=== PATIENT | female | born 1990 | race Caucasian/White ===

== ENCOUNTER 2020-02-05 06:10 | Inpatient (IN) | payer OTHER ==
[2020-02-05] MEDS ORDERED: OXYTOCIN 10 UNIT/ML 1 ML VIAL IM PRN (06:24)
[2020-02-05] MEDS ORDERED: METHYLERGONOVINE 0.2 MG/ML 1 ML AMP IM PRN (06:24)
[2020-02-05] MEDS ORDERED: LIDOCAINE 0.5% (PF) 5 MG/ML (50 ML SDV) SQ PRN (06:24)
[2020-02-05] MEDS ORDERED: TERBUTALINE 1 MG/ML VIAL SQ PRN (06:24)
[2020-02-05] MEDS ORDERED: CARBOPROST TROMETHAMINE 250 MCG/ML 1 ML AMP IM PRN (06:24)
[2020-02-05] MEDS: LACTATED RINGERS 1,000 ML IV SCH (06:35)
[2020-02-05 06:36] LABS: Basophils # (A) 0.1 k/uL (0-0.2); Basophils % (A) 0 %; Eosinophils # (A) 0.1 k/uL (0-0.7); Eosinophils % (A) 1 %; HCT 38.2 % (34.0-46.0); HGB 12.4 gm/dL (11.4-16.0); Lymphocytes % (A) 21 %; MCH 27.8 pg (25.0-35.0); MCHC 32.4 g/dL (31.0-37.0); MCV 86.1 fL (80.0-100.0); Mean Platelet Volume 8.6; Monocytes # (A) 0.5 k/uL (0-1.0); Monocytes % (A) 3 %; Neutrophils # (A) 10.4 k/uL (1.3-7.7); Neutrophils % (A) 73 %; Platelet Count 273 k/uL (150-450); RBC 4.44 m/uL (3.80-5.40); RDW 13.9 % (11.5-15.5); WBC 14.3 k/uL (3.8-10.6)
[2020-02-05] MEDS: OXYTOCIN 30 UNITS/500 ML NS 30 UNIT in SALINE 1 500ML.BAG IV SCH (06:39)
[2020-02-05] MEDS: CLINDAMYCIN 900 MG in DEXTROSE 5% IN WATER 50 ML IVPB SCH ×2 (06:44)
--- NOTE | 2020-02-05 08:33 | P.HPOB ---
History of Present Illness H&P Date: 02/05/20 Chief Complaint: IUP at 39 0/sevenths weeks This is a 30-year-old 1 para 0 at 39-0/7 weeks with an estimated due date of 02/11. Patient presents to labor and delivery for induction of labor. Patient does note contractions that began around 4 AM this morning regular nature and getting stronger. Patient denied loss of fluid or vaginal bleeding. Patient notes good movement this morning. Patient has been receiving routine care with myself which has been essentially uncomplicated with the exception of a marginal cord insertion that was noted on ultrasound at 20 weeks. On bloodwork patient is blood type of O+, rubella status immune, hepatitis B surface antigen negative, HIV negative, group beta strep status is positive. Review of Systems Constitutional: Denies chills, Denies fatigue, Denies fever Ears, nose, mouth and throat: Denies headache Cardiovascular: Reports leg edema Respiratory: Denies dyspnea Gastrointestinal: Denies constipation, Denies diarrhea, Denies nausea, Denies vomiting Genitourinary: Reports Past Medical History Past Medical History: No Reported History History of Any Multi-Drug Resistant Organisms: None Reported Past Surgical History: Orthopedic Surgery Additional Past Surgical History / Comment(s): several eye surgeries Past Anesthesia/Blood Transfusion Reactions: No Reported Reaction Past Psychological History: No Psychological Hx Reported Smoking Status: Never smoker Past Alcohol Use History: None Reported Past Drug Use History: None Reported - Past Family History Father Family Medical History: Hypertension Medications and Allergies Home Medications Medication Instructions Recorded Confirmed Type No Known Home Medications 02/05/20 02/05/20 History Allergies Allergy/AdvReac Type Severity Reaction Status Date / Time Penicillins Allergy Anaphylaxis Verified 02/05/20 06:14 Exam Osteopathic Statement: *. No significant issues noted on an osteopathic structural exam other than those noted in the History and Physical/Consult. 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 Breathing is noted to be nonlabored, heart has a regular rate and rhythm, abdome n is gravid and appropriate for gestational age, heart tones returned be category 1 and she is kaylen every 3 minutes. On cervical exam she is noted to be 6/90/-1 station amniotomy is performed and clear fluid was obtained. Results Result Diagrams: 02/05/20 06:22 Abnormal Lab Results - Last 24 Hours (Table) 02/05/20 Range/Units 06:22 WBC 14.3 H (3.8-10.6) k/uL Neutrophils # 10.4 H (1.3-7.7) k/uL Assessment and Plan (1) Term Current Visit: Yes Status: Acute Code(s): Z34.90 - ENCNTR FOR SUPRVSN OF NORMAL , UNSP, UNSP TRIMESTER SNOMED Code(s): 88145910 (2) Active labor Current Visit: Yes Status: Acute Code(s): LJZ7613 - SNOMED Code(s): 426152152 (3) Positive GBS test Current Visit: Yes Status: Acute Code(s): B95.1 - STREPTOCOCCUS, GROUP B, [facility]ING [facility] Code(s): 571400453 Plan: This 30-year-old 1 para 0 at 39 0/7 weeks is admitted to labor and delivery for active labor. Patient is offered analgesic options including epid ural and Stadol she will consider both. Anticipate spontaneous vaginal delivery later this morning.
[2020-02-05] MEDS ORDERED: ROPIVACAINE 5MG/ML 20ML VIAL ONE (08:39)
[2020-02-05] MEDS ORDERED: SODIUM CHLORIDE 0.9% 100 ML BAG ONE (08:39)
[2020-02-05] MEDS ORDERED: fentaNYL (PF) 50 MCG/ML 5 ML AMP ONE (08:39)
[2020-02-05] MEDS ORDERED: ROPIVACAINE 100 MG, fentaNYL (PF) 200 MCG in SODIUM CHLORIDE 0.9% 76 ML EPIDURAL ONE (09:08)
[2020-02-05] MEDS ORDERED: IBUPROFEN 600 MG TAB PO PRN (11:25)
[2020-02-05] MEDS ORDERED: SIMETHICONE 80 MG CHEWABLE PO PRN (11:25)
[2020-02-05] MEDS ORDERED: LANOLIN CREAM 5 GM TUBE TOPICAL PRN (11:25)
[2020-02-05] MEDS ORDERED: diphenhydrAMINE 50 MG CAP PO PRN (11:25)
[2020-02-05] MEDS ORDERED: HYDROCORTISONE 2.5% RECTAL CREAM 30 GM TUBE RECTAL PRN (11:25)
[2020-02-05] MEDS ORDERED: HYDROcodone/APAP 5-325MG 1 EACH TAB PO PRN (11:25)
[2020-02-05] MEDS ORDERED: BENZOCAINE/MENTHOL SPRAY 1 GM/SPRAY AEROSOL TOPICAL PRN (11:25)
[2020-02-05] MEDS ORDERED: ZOLPIDEM 5 MG TAB PO PRN (11:25)
[2020-02-05] MEDS ORDERED: ACETAMINOPHEN TAB 325 MG TAB PO PRN (11:25)
[2020-02-05] MEDS ORDERED: diphenhydrAMINE 25 MG CAP PO PRN (11:25)
[2020-02-05] MEDS ORDERED: diphenhydrAMINE 50 MG/ML 1 ML VIAL IVP PRN ×2 (11:25)
--- NOTE | 2020-02-05 11:29 | P.PROBDLV ---
Vaginal Delivery Note - . Vaginal Delivery Note: This is a 30-year-old 1 para 0 at 39-0/7 weeks that presented for regular painful contractions. Patient was initially scheduled for induction of labor today. Patient was noted to be 6 cm on admission. Amniotomy was performed and clear fluid was obtained upon admission. Patient quickly became uncomfortable after amniotomy and epidural was requested. Epidural was placed without difficulty by the anesthesia department. Patient progressed through labor eventually becoming complete and began pushing. Patient went on to have a normal spontaneous vaginal delivery of a viable male infant at 1058, weight of 5 lbs. 15 oz. with Apgars of 8 and 9 at one and 5 minutes respectively. After a two-minute delayed the umbilical cord was doubly clamped and cut and the was handed off to awaiting RN. Meconium-stained fluid were noted after the delivery of the infant. The placenta was then delivered spontaneously intact with a three-vessel cord being noted marginal umbilical cord insertion was noted. On inspection the patient's vaginal vault a second-degree midline laceration was noted this was repaired in the usual fashion with 3-0 Rapide. A left labial laceration was noted to be bleeding therefore this was closed in a running fashion with 4-0 c hromic. The uterus is noted to be firm and below the umbilicus at this time. Patient and tolerated delivery well All counts are correct 2.
[2020-02-05] MEDS ORDERED: OXYTOCIN 20 UNITS/1000 ML NS 1,000 ML IV SCH (11:30)
--- NOTE | 2020-02-06 09:12 | P.DS ---
Providers Date of admission: 02/05/20 06:10 Expected date of discharge: 02/06/20 Attending physician: Vivi Reese Primary care physician: Stated None - Discharge Diagnosis(es) (1) Term Current Visit: Yes Status: Acute (2) Active labor Current Visit: Yes Status: Acute (3) Positive GBS test Current Visit: Yes Status: Acute (4) Status post vaginal delivery Current Visit: Yes Status: Acute (5) Obstetric vaginal laceration with second degree perineal laceration Current Visit: Yes Status: Acute Hospital Course: This is a pleasant 30-year-old 1 now para 1 that presented to labor and delivery at 39-0/7 weeks for induction of labor. Patient had been receiving routine care with myself with the only complication of a marginal cord insertion noted at her anatomy ultrasound. Patient did note contractions to begin early that morning becoming regular and painful. Patient was noted to be 6 cm on admission. Patient underwent amniotomy and clear fluid was obtained. Patient requested epidural which was placed with the anesthesia department. Patient progressed to complete began pushing and had a normal spontaneous vaginal delivery of a viable male infant at 1058, weight of 5 lbs. 15 oz. and Apgars of 8 and 9 at one and 5 minutes respectively. Patient's course has been uneventful. On this day #1 she is a billing and voiding without difficulty she is tolerating a regular diet without nausea or vomiting. She states her pain is well-controlled. She is breast-feeding without difficulty. She would like discharge home at 24 hours if infant is discharged as well. Patient Condition at Discharge: Good Plan - Discharge Summary New Discharge Prescriptions: No Action No Known Home Medications Discharge Medication List No Known Home Medications 02/05/20 [History] Follow up Appointment(s)/Referral(s): Vivi Reese DO [Doctor of Osteopathic Medicine] - 1 Week Patient Instructions/Handouts: Vaginal Delivery (GEN), Vaginal Delivery (DC) Discharge Disposition: HOME SELF-CARE
[2020-02-06 10:35] LABS: Basophils % (A) 0 %; Eosinophils % (A) 0 %; HCT 32.4 % (34.0-46.0); HGB 10.6 gm/dL (11.4-16.0); Lymphocytes # (A) 2.8 k/uL (1.0-4.8); Lymphocytes % (A) 20 %; MCH 28.2 pg (25.0-35.0); MCHC 32.7 g/dL (31.0-37.0); MCV 86.3 fL (80.0-100.0); Mean Platelet Volume 7.9; Monocytes # (A) 0.4 k/uL (0-1.0); Monocytes % (A) 3 %; Neutrophils # (A) 10.2 k/uL (1.3-7.7); Neutrophils % (A) 75 %; Platelet Count 240 k/uL (150-450); RBC 3.75 m/uL (3.80-5.40); RDW 13.8 % (11.5-15.5); WBC 13.6 k/uL (3.8-10.6)
[2020-02-06 10:37] LABS: ALT 14 U/L (4-34); AST 27 U/L (14-36); African American GFR (CKD) >90 (>60 ml/min/1.73 sqM); Blood Urea Nitrogen 5 mg/dL (7-17); LDH 597 U/L (313-618); Non-African American GFR(CKD) >90 (>60 ml/min/1.73 sqM); Uric Acid 5.3 mg/dL (3.7-7.4)
[2020-02-06] MEDS: LACTATED RINGERS 1,000 ML IV SCH (17:37)
[2020-02-06] MEDS: SENNOSIDES-DOCUSATE SODIUM 1 EACH TAB PO SCH (17:38)
[2020-02-06] MEDS: OXYTOCIN 30 UNITS/500 ML NS 30 UNIT in SALINE 1 500ML.BAG IV SCH (17:38)
[2020-02-06] MEDS: CLINDAMYCIN 900 MG in DEXTROSE 5% IN WATER 50 ML IVPB SCH ×2 (17:38)
[2020-02-07] MEDS: SENNOSIDES-DOCUSATE SODIUM 1 EACH TAB PO SCH ×2 (05:12→09:16)
[2020-02-07 08:07] VITALS: BP 136/98; PULSE 83; RESP 17; TEMP 98.1
== END 2020-02-07 13:55 | disposition home or self-care (01) | DRG 807 ==
LOC: 4FBP 06:10
PROVIDERS: ADMIT Obstetrics & Gynecology Obstetrics; ATTEND Obstetrics & Gynecology Obstetrics
PROC: 10E0XZZ Delivery of Products of Conception, External Approach (ICD-10-PCS; principal; 2020-02-05)
PROC: 00HU33Z Insertion of Infusion Device into Spinal Canal, Percutaneous Approach (ICD-10-PCS; principal; 2020-02-05)
PROC: 0KQM0ZZ Repair Perineum Muscle, Open Approach (ICD-10-PCS; principal; 2020-02-05)
PROC: 3E0R3BZ Introduction of Anesthetic Agent into Spinal Canal, Percutaneous Approach (ICD-10-PCS; principal; 2020-02-05)
DX: O77.0 Labor and delivery complicated by meconium in amniotic fluid (principal); Z37.0 Single live birth; O99.824 Streptococcus B carrier state complicating childbirth; O70.1 Second degree perineal laceration during delivery; O43.193 Other malformation of placenta, third trimester; Z3A.39 39 weeks gestation of pregnancy; Z88.0 Allergy status to penicillin; Z82.49 Family history of ischemic heart disease and other diseases of the circulatory system
CPT/HCPCS: 82565; 83615; 84450; 84460; 84520; 84550; 85025; 86850; 86900; 86901; 88307